=== PATIENT | male | born 1975 | race Caucasian/White ===

== ENCOUNTER → 2020-08-23 | Outpatient (CLI) | payer OTHER ==
--- NOTE | 2020-10-17 03:45 | ECWPNPC ---
PATIENT NAME: ASTRID CAMPA V : 1975 GENDER: MALE VISIT DATE: 08/23/2020 DISCHARGE DATE: 08/23/20 0910 VISIT LOCKED DATE TIME: PHYSICIAN: PRICILA ACUÑA RESOURCE: PRICILA ACUÑA REASON FOR APPOINTMENT 1. MED MGMT HISTORY OF PRESENT ILLNESS GENERAL: - MIKA LAZCANO TELEHEALTH VISIT. 45-YEAR-OLD MALE IN FOR CONSULT REGARDING CURRENT PAIN MEDICATION REGIMEN. HE RATES HIS PAIN CURRENTLY AT A 7 OUT OF 10 AND DESCRIBES IT ACHING AND SHOOTING. PATIENT DOES ADMIT THAT HE FINDS THE MEDICATION BENEFICIAL HOWEVER IN THE MIDDLE OF THE DAY HE DOES EXPERIENCE A SPIKE IN PAIN. FALL RISK SCREENING: SCREENING : ONE FALL WITHOUT INJURY IN THE PAST YEAR. PAIN SCREENING: PATIENT HAS A COMPLAINT OF ACUTE OR CHRONIC PAIN :YES LOCATION OF PAIN:LOW BACK INTENSITY OF PAIN (SCALE OF 1 TO 10):7 WHAT DOES YOUR PAIN FEEL LIKE:ACHING, SHOOTING DURATION:CONTINOUS, CONSTANT, ALL DAY PAIN IS INCREASED BY:ACTIVITIES, PROLONGED STANDING PAIN IS DECREASED BY:USE OF PAIN MEDICATIONS NURSING NOTE: -. PAIN CENTER INTAKE QUESTIONS: DO YOU HAVE A HISTORY OF MRSA? :NO DO YOU TAKE A BLOOD THINNERS? :NO DO YOU HAVE ANY BLEEDING DISORDERS? :NO ANY NEW NUMBNESS OR WEAKNESS IN YOUR LEGS OR ARMS? :NO ANY PACEMAKER,DEFIBRILLATOR, OR DORSAL COLUMN STIMULATOR? :NO DO YOU HAVE ANY RASHES OR OPEN SORES? :NO ARE YOU ALLERGIC TO IV DYE? :NO ARE YOU DIABETIC? :NO ANY NEW PROBLEMS WITH YOUR MEDICATIONS? :NO HAVE YOU RECEIVED A VACCINE IN THE PAST 30 DAYS? :NO DO YOU PLAN TO RECEIVE A VACCINE IN THE NEXT 21 DAYS? :NO DO YOU NEED ANY PRESCRIPTION? :NO DO YOU TAKE ANY IMMUNOSUPPRESSIVE MEDICATIONS? :NO IS THERE A CHANCE YOU COULD BE ? :NO ARE YOU BREAST FEEDING? :NO CURRENT MEDICATIONS TAKING NAPROSYN 500 MG TABLET 1 TABLET WITH FOOD OR MILK ORALLY BID TAKING VOLTAREN 1 % GEL DIRECTED TOPICALLY BID TAKING LISINOPRIL 20 MG TABLET 1 TABLET ORALLY ONCE A DAY TAKING SIMVASTATIN 40 MG TABLET 1 TABLET IN THE EVENING ORALLY ONCE A DAY TAKING TRAMADOL HCL 50 MG TABLET 1 TABLET NEEDED ORALLY BID PAST MEDICAL HISTORY FALL FROM BUILDING HYPERTENSION HIGH CHOLESTEROL CHRONIC LOW BACK PAIN HEMATURIA CHRONIC UTI DEPRESSION WITH ANXIETY INSOMNIA TOBACCO USE DISORDER DIVERTICULOSIS VITAMIN D DEFICIENCY HISTORY OF KIDNEY STONE S/P AMPUTATION OF LEG BELOW KNEE DRUG SEEKING ALCOHOL ABUSE UTI CYSTITIS ANXIETY ATTACK SPRAIN OF WRIST, INITIAL ENCOUNTER LOW BACK STRAIN RIB PAIN CHEST CONTUSION HEPATITIS C HIV ACUTE PYELONEPHRITIS CONTUSION OF HEAD, INITIAL ENCOUNTER CONCUSSION WITH NO LOC INTOXICATION PAINFUL BACK RENAL CALCULUS LACERATION OF FOREARM SPINAL STENOSIS DISC HERNIATION ALLERGIES N.K.D.A. SURGICAL HISTORY NO SURGICAL HISTORY DOCUMENTED. FAMILY HISTORY FATHER: MOTHER: ALIVE SIBLINGS: ALIVE SON(S): ALIVE DAUGHTER(S): UNKNOWN 1 SISTER(S) - HEALTHY. 2 SON(S) - HEALTHY. SOCIAL HISTORY GENERAL: TOBACCO USE ARE YOU A:CURRENT SMOKER VAPORYES E-CIGARETTENO LATEX QUESTIONNAIRE LATEX ALLERGY : HAVE YOU EVER DEVELOPED ANY TYPE OF REACTION AFTER HANDLING LATEX PRODUCTS SUCH RUBBER GLOVES, CONDOMS, DIAPHRAGMS, BALLOONS, SOCKS, OR UNDERWEAR?NO LATEX ALLERGY : HAVE YOU EVER DEVELOPED ANY TYPE OF REACTION DURING OR AFTER DENTAL APPOINTMENT, VAGINAL/RECTAL EXAMINATION, SURGICAL PROCEDURE, OR ANY OTHER EXPOSURE?NO LATEX RISK : HAVE YOU EVER HAD ANY DIFFICULTY BREATHING OR HIVES AFTER EATING OR HANDLING ANY FRUITS, OR VEGETABLES; SUCH KIWI, BANANAS, STONE FRUITS, OR CHESTNUTSNO LATEX RISK : DO YOU HAVE A PREVIOUS PERSONAL HISTORY OF MORE THAN NINE SURGERIES, SPINA BIFIDA, OR REPEATED CATHERIZATIONS? NO LATEX RISK : ARE YOU FREQUENTLY EXPOSED TO LATEX PRODUCTS IN YOUR OCCUPATION?NO DATE ASKED : 08/23/2020 RECREATIONAL DRUG USE DRUG USE?NO LANGUAGE LANGUAGES SPOKEN:LAO LEARNING BARRIERS / SPECIAL NEEDS BARRIERS TO LEARNING?NO HEARING IMPAIRED?NO VISION IMPAIRED?YES :CORRECTIVE LENSES COGNITIVELY IMPAIRED?NO READINESS TO LEARN?NO LEARNING PREFERENCES?NO EMOTIONAL BARRIERS?NO SPECIAL DEVICES?NO DOMESTIC VIOLENCE DO YOU FEEL SAFE IN YOUR ENVIRONMENT?YES HOSPITALIZATION/MAJOR DIAGNOSTIC PROCEDURE NO HOSPITALIZATION HISTORY. REVIEW OF SYSTEMS CONSTITUTIONAL: ANY RECENT FEVER NO . CHILLS NO . WEIGHT CHANGE OF UNKNOWN REASONS NO . GASTROENTEROLOGY: NEW UNEXPLAINABLE CHANGES IN BOWEL CONTROL NO . CONSTIPATION NO . GENITOURINARY: ANY NEW CHANGE IN BLADDER CONTROL? NO . NEUROLOGY: NEW ONSET DIZZINESS OR NEUROLOGICAL CHANGES NOT MENTIONED NO . NEW NUMBNESS OR PAIN PATTERNS NOT MENTIONED AND PERTINENT TO TODAY'S VISIT NO . CARDIOLOGY: NEW CHEST PRESSURE NO . PATIENT DENIES NO . RESPIRATORY: UNEXPLAINABLE COUGH NO . NEW SHORTNESS OF BREATH NO . VITAL SIGNS WT 234 LBS, HT 6'1, BMI 31.73 INDEX, BP 140/93 MM HG, HR 90 /MIN, RR 18 /MIN, TEMP 98 FVITALS PER CF. EXAMINATION GENERAL EXAMINATION: GENERALNO ACUTE DISTRESS, WELL NOURISHED AND HYDRATED. PSYCHAPPROPRIATE MOOD AND AFFECT . ASSESSMENTS DORSALGIA, UNSPECIFIED - M54.9 (PRIMARY) TREATMENT OTHERS NOTES: 45-YEAR-OLD MALE IN FOR CONSULT REGARDING CURRENT PAIN MEDICATION REGIMEN. GIVEN PRESENTING SYMPTOMS RECOMMEND INCREASING TRAMADOL TO 50 MG 3 TIMES A DAY WITH FOLLOW-UP TO DETERMINE EFFICACY OF TREATMENT. PATIENT HAS EXPRESSED UNDERSTANDING OF AND WAS IN AGREEMENT WITH TREATMENT PLAN. GIVEN TIME TO ASK QUESTIONS AND EXPRESS CONCERNS. DISPOSITION & COMMUNICATION FOLLOW UP WITH MIKA LAZCANO (REASON: BACK PAIN) ELECTRONICALLY SIGNED BY JORDAN VIVAS ON 10/16/2020 AT 08:29 AM EST DISCLAIMER : THIS IS A VISIT SUMMARY EXTRACTED FROM THE [employer] CHART. IT IS NOT A COPY OF THE [employer] PROGRESS NOTE. DESMOND
== END ==
LOC: M PAIN 15:00
PROVIDERS: ATTEND Family Medicine
DX: M54.5 Low back pain (principal); I10 Essential (primary) hypertension; E78.00 Pure hypercholesterolemia, unspecified; F32.9 Major depressive disorder, single episode, unspecified; F41.9 Anxiety disorder, unspecified; G47.00 Insomnia, unspecified; F17.210 Nicotine dependence, cigarettes, uncomplicated; E55.9 Vitamin D deficiency, unspecified; Z79.891 Long term (current) use of opiate analgesic; Z79.899 Other long term (current) drug therapy